=== PATIENT | male | born 1965 | race Caucasian/White ===

== ENCOUNTER 2016-08-08 17:51 | Emergency (ER) ==
--- NOTE | 2016-08-08 19:31 | PROVIDER DOCUMENTATION ---
HPI-Musculoskeletal Pain/Inj - GENERAL Chief Complaint: Extremity Pain Stated Complaint: SWOLLEN KNEE Time Seen by Provider: 08/08/16 19:23 Source: patient - HX OF PRESENT ILLNESS-MUSKULOSKELTAL Nature of Presenting Problem: 50 yom c/o right knee pain with swelling. Pain and swelling has continued to get worse. Pt knows of an old injury. Pt now wants fluid drawn off of knee and help with the pain. Quality of Pain: reports: throbbing Severity in ED: moderate Onset/Duration: other Timing: still present, getting worse Modifying Factors: improves with: nothing Any recent injury?: No Locality of Occurance: Home Similar Symptoms Previously?: No Recently seen or treated by another doctor?: No - FALL INJURY Location of Pain/Injury: reports: lower extremity Pain Radiation: reports: no radiation Reason for Fall: denies: unknown, fainted, lightheaded, lost balance, slipped, tripped, other - LOWER EXTREMITY PAIN/INJURY Lower Extremities Pain: knee: right Context / Method of Injury: reports: other Associated Symptoms: reports: denies symptoms Review of Systems - Adult - REVIEW OF SYSTEMS - ADULT Constitutional: reports: see HPI. denies: no symptoms reported, chills, fever, fatique, night sweats, weight gain, weight loss, other Eyes: reports: no symptoms reported. denies: see HPI, discharge, dry eyes, decreased vision, blurred vision, double vision, eye pain, redness, other Ears, Nose, Mouth & Throat: reports: no symptoms reported. denies: see HPI, ear discharge, ear pain, hearing loss, tinnitus, epistaxis, sinus problem, nose pain, loose teeth, mouth/dental pain, mouth swelling, hoarseness, throat pain, throat swelling, other Cardiovascular: reports: no symptoms reported. denies: see HPI, chest pain, edema, heart murmur, irregular heart rate, orthopnea, palpitations, poor circulation, PND, syncope, other Respiratory: reports: no symptoms reported. denies: see HPI, chronic cough, cough, dyspnea on exertion, excessive sputum production, hemoptysis, pleurisy, shortness of breath, wheezing, other Gastrointestinal: reports: no symptoms reported. denies: see HPI, abdominal pain, hematemesis, constipation, diarrhea, difficulty swallowing, frequent heartburn, nausea, poor appetite, rectal bleeding, vomiting, other Genitourinary: reports: no symptoms reported. denies: see HPI, dysuria, discharge, frequency, flank pain, frequent UTI's, hematuria, hesitency, incontinence, urinary retention, urgency, other Musculoskeletal: reports: see HPI, joint pain, joint swelling. denies: no symptoms reported, bone pain, back pain, frequent leg cramps, muscle aches, muscle weakness, neck pain, other Integumentary: reports: no symptoms reported. denies: see HPI, hives, hair loss , itching, mole changes, nail changes, rash, skin sores/ulcer, skin thickening, other Neurological: reports: no symptoms reported. denies: see HPI, ataxia, dizziness /vertigo, headache/migraines, loss of balance, numbness, paresthesia, seizure, slurred speech, syncope, tremors, other All Other Systems: Reviewed and Negative Past History - Adult - PAST MEDICAL HISTORY-ADULT Review of Records: reports: Old Records Reviewed, Nursing Assessment Review, Medications Reviewed, Social history reviewed & non-contributory. - PRIOR SURGERIES/PROCEDURES Surgical/Procedure History: reports: appendectomy - IMMUNIZATION STATUS Childhood Immunizations: See Nurse Assessment Flu Vaccine: See Nurse Assessment - FAMILY HISTORY Family History: reviewed, not pertinent Physical Exam-Injury Related - Physical Exam-Injury Related Initial Vital Signs Reviewed: Yes General Appearance: appears well, alert, mild distress (due to pain) Eyes: PERRL/EOMI, pink conjunctivae. negative: fundi clear, no AV nicking, anisocoria, conjuctival exudate, EOM palsy, meningismus, pale conjunctivae, photophobia, sclera injected, scleral icterus, subconjunctival hemorrhage, sunken eyes, other Head, Ears, Nose, Mouth & Throat: normocephalic/atraumatic, moist mucous membranes, normal ENT inspection, TMs normal, pharynx normal. negative: angioedema, dental decay, hearing deficit, pharyngeal erythema, tonsillar exudate, TM abnormal, TM obscurred by cerumen, frontal tenderness, maxillary tenderness, other Neck: non-tender, full range of motion, supple, normal inspection. negative: pain with axial compression, Brudzinski's sign, carotid bruit, C-spine tenderness, decresed ROM, ecchymosis, limited range of motion, lymphadenopathy, muscle spasm, nexus criteria negative, pain on movement, subcutaneous emphysema , swelling, trachial deviation, tender lateral, tender midline, thyromegaly, vertebral point tenderness, other Respiratory: chest non-tender, lungs clear, normal breath sounds, no pleuratic chest pain, no respiratory distress, no accessory muscle use. negative: respiratory distress, decreased breath sounds, accessory muscle use, crackles, rales, rhonchi, stridor, wheezing, dull on percussion, prolonged expiration, pain on inspiration, pleural rub, retractions, splinting, decreased rate, increased rate, crepitus, ecchymosis, flail chest, palpable fracture, paradoxical movements, rib tenderness, seat belt bruising, tenderness, other Cardiovascular: normal peripheral pulses, regular rate, rhythm, no edema, no gallop, no JVD, no murmur. negative: JVD, bradycardia, tachycardia, diastolic murmur, systolic murmur, gallop/S3, gallop/S4, extra beats, friction rub, irregularly irregular, PMI displaced laterally, other Abdominal Exam: normal bowel sounds, non tender, soft, no organomegaly, no pulsatile mass. negative: abdominal bruit, abnormal bowel sounds, distended, guarding, rigid, rebound, tenderness, hernia, mass, hepatomegaly, spleenomegaly , McBurney's point tenderness, Posada's sign, obturator sign, prominent aortic pulsations, psoas, Rovsing's sign, other Male Genitalia: deferred Rectal Exam: deferred Hemoccult Exam: deferred Lymphatic: no adenopathy. negative: axilla node tender, cervical node tenderness, inguinal node tender, enlargement, striations, streaking, other Back Exam: normal inspection, no CVA tenderness, no vertebral tenderness. negative: CVA tenderness, decreased range of motion, ecchymosis, kyphosis, lordosis, muscle spasm, scoliosis, swelling, vertebral tenderness, other Extremity: no pedal edema, no calf tenderness, normal capillary refill, inflammation, joint effusion, swelling, tenderness Integumentary: normal color, warm/dry. negative: blanching, cyanosis, diaphoresis, decubitus, ecchymosis, embolic lesions, erythema, signs of IVDA, jaundice, mottled, pallor, petechiae, purpura, rash, swelling, tenderness, warm , zoster-like rash, abrasion, ashen, blistered, contusion(s), durbin red, crepitus, laceration, puncture wound(s), white, other Neurologic: grossly normal Psych/Mental Status: oriented x 3 Progress - PLAN OF CARE/RESULTS Progress/Plan/Lab Results: Orders Category Date Time Status KNEE 3 VIEWS RIGHT [RAD] Stat Exams 08/08/16 18:06 Taken Dexamethasone [Decadron] Med 08/08/16 19:35 Discontinued 10 mg IM NOW ONE Ketorolac [Toradol] Med 08/08/16 19:35 Discontinued 60 mg IM NOW ONE Vital Signs Temp Pulse Resp BP Pulse Ox 08/08/16 20:16 97.5 F L 74 18 134/88 98 08/08/16 18:01 98.4 F 90 16 134/69 99 promethazine HCl * [From Phenergan] Adverse Reaction (Verified 08/08/16 18:03) Unknown "CANT CONTROL BODY" Colchicine [Colcrys] 0.6 mg PO DAILY 08/08/16 Ketorolac [Toradol] 10 mg PO Q6H PRN PRN #6 tablet 08/08/16 Methylprednisolone [Medrol Dosepak] 4 mg PO DIRECTED #1 package 08/08/16 Departure - Departure Time of Disposition Order: 19:33 DIAGNOSIS: Knee joint effusion Qualifiers: Laterality: right Qualified Code(s): M25.461 - Effusion, right knee Disposition: HOME 01 Certified Medical Emergency: Emergent Condition: Stable Additional Instructions: Follow up with Orthopedic to have further evaluation. ED Follow Up Instructions: You have been treated by a care provider in the Emergency Department. These instructions are being provided to you so you can have an understanding of how to care for yourself upon discharge. Upon discharge from the Emergency Department, you are responsible for making arrangements for follow-up care by a physician of your choice. Take all prescribed medications as directed. Return to the Emergency Department immediately for any new or worsening symptoms. You may call the Physician Referral phone number at [phone] to obtain a list of Physicians who are taking new patients. Prescriptions: Methylprednisolone [Medrol Dosepak] 4 mg PO DIRECTED #1 package Ketorolac [Toradol] 10 mg PO Q6H PRN PRN #6 tablet PRN Reason: Pain Referrals: None,PCP [Primary Care Provider] - Forms: Return to School/Parent Work Instructions: Knee Effusion, [id number], Methylprednisolone tablets, Ketorolac tablets Attestation - Physician/ JOLEEN Attestation Patient care was provided by Advanced Practice Provider:: Yes Advanced Practice Provider:: Keanu Lanza Advanced Practice Provider documentation review:: The Mid-level provider documentation, treatment plan and medical decision making was reviewed by the physician who agrees with all treatment and medical decision making by the MLP.
[2016-08-08] MEDS ORDERED: DECADRON IM ONE (19:35)
[2016-08-08] MEDS ORDERED: TORADOL IM ONE (19:35)
[2016-08-08 20:17] VITALS: BP 134/88
--- NOTE | 2016-08-09 09:49 | Diag Imaging Result Document ---
PROCEDURE NAME: KNEE 3 VIEWS RIGHT - 08/08/2016 RIGHT KNEE 3 VIEWS: FINDINGS: There are mild degenerative changes. There are no erosive or destructive changes identified. There is no fracture or dislocation identified. There is apparent thickening of the suprapatellar bursa suggestive of joint effusion. IMPRESSION: Mild degenerative changes. No evidence of fracture or dislocation. Possible joint effusion.
== END 2016-08-08 20:17 | disposition home or self-care (01) ==
LOC: P.ED 17:51
DX: M25.461 Effusion, right knee (principal); M25.561 Pain in right knee
CPT/HCPCS: 96372; J1885